=== PATIENT | female | born 1965 | race Caucasian/White ===

== ENCOUNTER 2016-11-01 17:21 | Emergency (ER) | payer MEDICAID, OTHER ==
[~2016-11-01] VITALS: Ht 157.5 cm; Wt 122.7 kg
[2016-11-01 17:21] VITALS: BP 131/64
[2016-11-01] MEDS ORDERED: FLUO20CA8 PO (17:33)
[2016-11-01] MEDS ORDERED: LEVO100T54 PO (17:33)
[2016-11-01] MEDS ORDERED: TOPA100T12 PO (17:33)
[2016-11-01] MEDS ORDERED: PRED20TA PO (20:17)
[2016-11-01] MEDS ORDERED: ACET30TAB PO (20:17)
--- NOTE | 2016-11-02 09:38 | REP ---
LEFT SHOULDER SERIES, COMPLETE: 11/01/2016. Clinical history: Shoulder pain. Possible calcific tendinopathy. Comparison: Chest x-ray 11/27/2008. Findings: Three views provided. The AC joint shows minor degenerative change. There is no fracture, subluxation or focal bone lesion about the glenohumeral joint. There is a small bone island in the glenoid. No abnormal soft-tissue calcification to suggest calcific tendinopathy. No fractures. Impression: 1. Minor AC joint degenerative change. No evidence of calcific tendonitis. Signed by Myles Mart MD 11/02/2016 07:48 P
== END 2016-11-01 20:29 | disposition home or self-care (01) ==
LOC: M ED 17:21
DX: S46.912A Strain of unspecified muscle, fascia and tendon at shoulder and upper arm level, left arm, initial encounter (principal); E03.9 Hypothyroidism, unspecified; Z98.84 Bariatric surgery status; X58.XXXA Exposure to other specified factors, initial encounter; Y92.89 Other specified places as the place of occurrence of the external cause; Y93.89 Activity, other specified; Y99.9 Unspecified external cause status

== ENCOUNTER → 2022-05-08 | Outpatient (CLI) | payer OTHER ==
[~2022-05-08] MED LIST: ACET-716 PO; BUME1TAB3; CETI-24 PO; ERGO500029; FLUO-96 PO; FLUO20CA22 PO; LEVO100T54 PO; LEVO200T4 PO; LEVO25TA5 PO; METF-838; MONT10TA97 PO; PRED20TA PO; TOPA100T12 PO; TOPI100T9 PO
== END ==
LOC: M LABSMTC 09:42
PROVIDERS: ATTEND Anesthesiology
DX: Z01.812 Encounter for preprocedural laboratory examination (principal); Z11.52 Encounter for screening for COVID-19

== ENCOUNTER 2022-05-13 08:34 | Day surgery (SDC) | payer OTHER ==
[~2022-05-13] VITALS: Ht 157.5 cm; Wt 115.2 kg
[~2022-05-13 08:34] MED LIST changes: +NS 1,000 ML IV ONE
[2022-05-13] MEDS ORDERED: LIDOCAINE 2% 100MG/5ML SDV (FOR ANES.) As Ordered ONE (10:24)
[2022-05-13] MEDS ORDERED: propofoL 200 MG/20 ML VIAL As Ordered ONE (10:24)
[2022-05-13] MEDS ORDERED: ePHEDrine SULFATE 25 MG/5 ML(5MG/ML) SYRINGE As Ordered ONE (10:40)
[2022-05-13 11:00] VITALS: BP 107/65
== END 2022-05-13 11:09 | disposition home or self-care (01) ==
LOC: M OPP 08:34
PROVIDERS: ATTEND Internal Medicine Gastroenterology
DX: Z12.11 Encounter for screening for malignant neoplasm of colon (principal); D12.3 Benign neoplasm of transverse colon; D12.5 Benign neoplasm of sigmoid colon; K57.30 Diverticulosis of large intestine without perforation or abscess without bleeding; K64.8 Other hemorrhoids; E03.9 Hypothyroidism, unspecified; R06.83 Snoring; Z98.84 Bariatric surgery status; Z88.2 Allergy status to sulfonamides; Z88.8 Allergy status to other drugs, medicaments and biological substances; Z79.899 Other long term (current) drug therapy; Z79.890 Hormone replacement therapy

== ENCOUNTER → 2023-06-19 | Outpatient (CLI) | payer OTHER ==
[~2023-06-19] MED LIST changes: +AMOX875T2 PO; +METF-839 PO; -NS 1,000 ML IV ONE; +PROHANCE 279.3MG/ML 15ML VIAL As Ordered ONE; +PROHANCE 279.3MG/ML 15ML VIAL ONE
== END ==
LOC: M RAD 11:08
PROVIDERS: ATTEND Family Medicine
DX: N95.0 Postmenopausal bleeding (principal); R93.41 Abnormal radiologic findings on diagnostic imaging of renal pelvis, ureter, or bladder
CPT/HCPCS: 76856; A9576

== ENCOUNTER 2023-06-25 05:48 | Emergency (ER) | payer OTHER ==
[~2023-06-25] VITALS: Ht 157.5 cm; Wt 117.7 kg
[~2023-06-25 05:48] MED LIST changes: -AMOX875T2 PO; -METF-839 PO; -PROHANCE 279.3MG/ML 15ML VIAL As Ordered ONE; -PROHANCE 279.3MG/ML 15ML VIAL ONE
[2023-06-25] MEDS ORDERED: METF-839 PO (06:10)
[2023-06-25] MEDS: BACITRACIN OINTMENT 30GM TUBE TOP ONE (06:39)
[2023-06-25] MEDS: LIDOCAINE W/EPINEPHRINE 1% 20ML VIAL SC ONE (06:40)
[2023-06-25] MEDS: BOOSTRIX VACCINE (TETANUS/DIPHTH/ACEL. PERTUSSIS) 0.5ML SYR IM.IMMUN ONE (06:41)
[2023-06-25] MEDS: NORCO, ANEXSIA 5/325MG TABLET (HYDROcodone/ACETAMINOPHEN) PO ONE (06:42)
[2023-06-25] MEDS: AUGMENTIN 875 MG TAB PO ONE (07:57)
[2023-06-25 07:58] VITALS: BP 111/57; TEMP 97.1; O2SAT 100
[2023-06-25] MEDS ORDERED: AMOX875T2 PO (08:04)
== END 2023-06-25 08:22 | disposition home or self-care (01) ==
LOC: M ED 05:48
DX: S61.412A Laceration without foreign body of left hand, initial encounter (principal); S61.431A Puncture wound without foreign body of right hand, initial encounter; W54.0XXA Bitten by dog, initial encounter; Y92.009 Unspecified place in unspecified non-institutional (private) residence as the place of occurrence of the external cause; Y93.9 Activity, unspecified; Y99.9 Unspecified external cause status; K21.9 Gastro-esophageal reflux disease without esophagitis; E11.9 Type 2 diabetes mellitus without complications; E03.9 Hypothyroidism, unspecified; Z79.899 Other long term (current) drug therapy; Z88.2 Allergy status to sulfonamides